=== PATIENT | female | born 1990 | race Two or more races ===

== ENCOUNTER 2022-08-17 07:25 | Inpatient (IN) | payer OTHER ==
[~2022-08-17] VITALS: Ht 162.6 cm; Wt 60.3 kg
[2022-08-17] MEDS ORDERED: KETOROLAC 30MG/ML VIAL IV ONE (08:30)
[2022-08-17 08:38] LABS: HEMATOCRIT. 40.7 % (36.0-48.0); HEMOGLOBIN. 13.3 g/dL (12.0-16.0); MEAN CORPUSCULAR VOLUME 79.9 fL (81.0-99.0); PLATELET 334 x1000/uL (130-400); RED CELL DISTRIBUTION WIDTH 14.7 % (11.6-14.6)
[2022-08-17 08:42] LABS: CHLORIDE 108 mEq/L (98-107)
[2022-08-17 08:48] LABS: INR 1.1; PROTHROMBIN TIME 11.4 sec (9.6-11.0)
[2022-08-17] MEDS ORDERED: VISCOUS LIDOCAINE 2% 15 ML UDC PO STA (09:08)
[2022-08-17] MEDS ORDERED: DICYCLOMINE 10 MG/5 ML ORAL SYR PO STA (09:08)
[2022-08-17] MEDS ORDERED: MAGNESIUM/ALUMINUM HYDROXIDE/SIMETHICONE 30ML UDC PO STA (09:08)
[2022-08-17 09:14] LABS: CLARITY URINE CLEAR (CLEAR); COLOR URINE YELLOW (YELLOW); KETONES URINE TRACE (NEGATIVE); LEUKOCYTE ESTERASE URINE TRACE (NEGATIVE); NITRITE URINE NEGATIVE (NEGATIVE); OCCULT BLOOD URINE NEGATIVE (NEGATIVE); PH URINE 5.5 (4.5-8.0); PROTEIN URINE NEGATIVE (NEGATIVE); SPECIFIC GRAVITY URINE 1.023 (1.005-1.030); UROBILINOGEN URINE 0.2 E.U./dL (0.2-1.0)
[2022-08-17] MEDS ORDERED: MORPHINE SULFATE 4 MG/ML CPJ (NOT FOR IM USE) IV ONE ×2 (09:15→11:30)
[2022-08-17 09:24] LABS: HCG SCREEN NEGATIVE
[2022-08-17 09:26] LABS: PLATELET ESTIMATE NORMAL
[2022-08-17] MEDS ORDERED: ONDANSETRON HCL 4MG/2ML INJ IV ONE (10:00)
[2022-08-17] MEDS ORDERED: IPRATROPIUM/ALBUTEROL 0.5-3(2.5)MG/3ML NEB HHN PRN (13:15)
[2022-08-17] MEDS ORDERED: GUAIFENESIN 200MG/10ML SUGAR FREE UDC PO PRN (13:15)
[2022-08-17] MEDS ORDERED: DOCUSATE SODIUM 100MG CAPSULE PO PRN (13:15)
[2022-08-17] MEDS ORDERED: MAGNESIUM/ALUMINUM HYDROXIDE/SIMETHICONE 30ML UDC PO PRN (13:15)
[2022-08-17] MEDS ORDERED: ACETAMINOPHEN 325MG TABLET PO PRN ×2 (13:15)
[2022-08-17] MEDS ORDERED: CLONIDINE 0.1MG TABLET PO PRN (13:15)
[2022-08-17] MEDS: DEXT 5%/0.45% NACL 1000ML 1,000 ML IV SCH (13:30)
[2022-08-17] MEDS ORDERED: FOLIC ACID 1 MG, THIAMINE HCL 100 MG, MVI, ADULT NO.1 10 ML in DEXTROSE 5% WATER 1,000 ML IV ONE ×4 (14:00)
[2022-08-17 15:18] LABS: *AMPHETAMINES SCREEN URINE NEGATIVE (NEGATIVE); *BARBITURATES SCREEN URINE NEGATIVE (NEGATIVE); *COCAINE SCREEN URINE NEGATIVE (NEGATIVE); METHADONE URINE SCREEN NEGATIVE (NEGATIVE); OPIATES URINE SCREEN NEGATIVE (NEGATIVE); PHENCYCLIDINE URINE SCREEN NEGATIVE (NEGATIVE)
[2022-08-17 15:30] LABS: *BENZODIAZEPINES SCREEN URINE PRESUMTIVE POSITIVE (NEGATIVE); CANNABINOID URINE SCREEN PRESUMTIVE POSITIVE (NEGATIVE)
[2022-08-17] MEDS: ENOXAPARIN 40MG/0.4ML SYR SUBCUT SCH (16:30)
[2022-08-17] MEDS ORDERED: NALOXONE HCL 0.4MG/ML VIAL IV PRN (19:30)
[2022-08-17] MEDS: HYDROCODONE/ACETAMINOPHEN 5/325MG TABLET PO PRN (19:43)
[2022-08-18] VITALS (7 sets, daily range): BP systolic 90–137; BP diastolic 60–78
[2022-08-18] MEDS: DEXT 5%/0.45% NACL 1000ML 1,000 ML IV SCH ×2 (02:35→14:58)
[2022-08-18] MEDS: ONDANSETRON HCL 4MG/2ML INJ IV PRN ×2 (04:13→14:58)
[2022-08-18] MEDS: HYDROCODONE/ACETAMINOPHEN 5/325MG TABLET PO PRN ×4 (04:14→21:57)
[2022-08-18 04:58] LABS: BASOPHILS % 0.6 % (0.0-2.0); HEMATOCRIT. 39.2 % (36.0-48.0); HEMOGLOBIN. 12.9 g/dL (12.0-16.0); LYMPHOCYTES % 21.5 % (20.0-50.0); MEAN CORPUSCULAR HEMOGLOBIN 26.2 pg (28.0-32.0); MEAN CORPUSCULAR VOLUME 79.6 fL (81.0-99.0); MEAN PLATELET VOLUME 9.4 fl (7.4-10.4); MONOCYTES % 6.9 % (2.0-8.0); PLATELET 298 x1000/uL (130-400); RED BLOOD CELL COUNT 4.93 mill/uL (4.2-5.4); RED CELL DISTRIBUTION WIDTH 14.6 % (11.6-14.6)
[2022-08-18 05:20] LABS: CHLORIDE 107 mEq/L (98-107)
[2022-08-18 05:34] LABS: PHOSPHORUS 4.1 mg/dL (2.5-4.9); T4 FREE 1.34 ng/dL (0.76-1.46)
[2022-08-18 05:50] LABS: VITAMIN B12 SERUM 1540 pg/mL (211-911)
[2022-08-18 05:59] LABS: FOLIC ACID (FOLATE) SERUM > 20.00 ng/mL (>5.38)
[2022-08-18] MEDS: PANTOPRAZOLE 40MG DR TABLET PO SCH (06:18)
[2022-08-18] MEDS ORDERED: CYANOCOBALAMIN 1000MCG TABLET PO SCH (07:00)
[2022-08-18] MEDS: DULOXETINE HCL 20MG DR CAPSULE PO SCH (09:15)
[2022-08-18] MEDS ORDERED: ALPRAZOLAM 0.5 MG TABLET PO PRN (13:00)
[2022-08-18] MEDS ORDERED: IPRATROPIUM BROMIDE (0.02%) 0.5MG/2.5ML NEB HHN PRN (13:15)
[2022-08-18] MEDS ORDERED: ALBUTEROL (0.083%) 2.5MG/3ML NEB HHN PRN (13:15)
[2022-08-18] MEDS: ENOXAPARIN 40MG/0.4ML SYR SUBCUT SCH (16:30)
[2022-08-19] VITALS: BP 92/49
[2022-08-19 04:00] VITALS: BP 109/61
[2022-08-19] MEDS: DEXT 5%/0.45% NACL 1000ML 1,000 ML IV SCH (05:48)
[2022-08-19] MEDS: HYDROCODONE/ACETAMINOPHEN 5/325MG TABLET PO PRN (05:59)
[2022-08-19] MEDS: PANTOPRAZOLE 40MG DR TABLET PO SCH (06:25)
[2022-08-19 06:47] LABS: CHLORIDE 107 mEq/L (98-107)
[2022-08-19 06:56] LABS: HEMATOCRIT 39.8 % (36.0-48.0); HEMOGLOBIN 13.2 g/dL (12.0-16.0); MEAN CORPUSCULAR HEMOGLOBIN 26.3 pg (28.0-32.0); MEAN CORPUSCULAR VOLUME 79.5 fL (81.0-99.0); PLATELET 267 x1000/uL (130-400); RED BLOOD CELL COUNT 5.01 mill/uL (4.2-5.4); RED CELL DISTRIBUTION WIDTH 14.9 % (11.6-14.6)
[2022-08-19 08:00] VITALS: BP 104/63
[2022-08-19] MEDS: DULOXETINE HCL 20MG DR CAPSULE PO SCH (08:54)
[2022-08-19] MEDS: ONDANSETRON HCL 4MG/2ML INJ IV PRN (09:30)
[2022-08-19] MEDS ORDERED: PANT40TA51 PO (10:30)
[2022-08-19] MEDS ORDERED: CYM20 PO (10:30)
[2022-08-19] MEDS ORDERED: TOPUD MT (10:32)
[2022-08-19 11:07] VITALS: BP 104/63
== END 2022-08-19 14:00 | disposition home or self-care (01) | DRG 384 ==
LOC: ER 07:25 → MICUSO 11:59 → EDBEDREQTM 12:09 → EDBEDREQ 12:09 → 6EST 23:25
PROVIDERS: ADMIT Internal Medicine; ATTEND Internal Medicine
DX: K27.9 Peptic ulcer, site unspecified, unspecified as acute or chronic, without hemorrhage or perforation (principal); R45.851 Suicidal ideations; K21.9 Gastro-esophageal reflux disease without esophagitis; F41.9 Anxiety disorder, unspecified; K22.4 Dyskinesia of esophagus; G89.29 Other chronic pain; F32.9 Major depressive disorder, single episode, unspecified; F41.1 Generalized anxiety disorder; F12.90 Cannabis use, unspecified, uncomplicated; Z91.14 Patient's other noncompliance with medication regimen; Z79.899 Other long term (current) drug therapy
CPT/HCPCS: 36415; 74176; 76700; 80048; 80053; 80076; 80305; 80320; 81003; 82607; 82746; 83735; 84100; 84439; 84443; 84703; 85025; 85027; 85379; 99285; J1650; J1885; J2270; J2405; J3411; J3490; J7070; G0480